=== PATIENT | male | born 1985 | race Caucasian/White ===

== ENCOUNTER → 2018-05-30 | Outpatient (CLI) | payer OTHER ==
--- NOTE | 2018-05-30 21:02 | Diagnostic Imaging Report ---
EXAM: Right Upper Quadrant Ultrasound INDICATION: ^ELEVATED LIVER ENZYMES COMPARISON: None. TECHNIQUE: Transverse and longitudinal images of the right upper abdomen were obtained. FINDINGS: Liver: Size: 16.3 cm in the right midclavicular line, normal Appearance: Mildly increased echogenicity, smooth contour Mass: No focal masses Gallbladder: Stones/Sludge: None Wall: 0.2 cm Appearance: No pericholecystic fluid or hydrops. Sonographic Cash's Sign: Negative Bile Ducts: Intrahepatic Ducts: No dilatation Extrahepatic Ducts: Common bile duct measures 0.4 cm, no dilatation Pancreas: Incompletely visualized due to overlying bowel gas, but no abnormality identified involving the visualized portions of the pancreas. Right Kidney: Size: 11.0 x 5.3 x 5.7 cm Echogenicity: Normal Parenchymal thickness: Normal Collecting system: No hydronephrosis Stones: None Cyst/Mass: None Vessels: Aorta: Obscured by bowel gas. Inferior Vena Cava: Visualized portions are normal Main Portal Vein: 0.9 cm, normal size with hepatopetal flow. Free Fluid: No ascites or pleural effusion IMPRESSION: Mildly increased echogenicity of the liver, likely mild diffuse hepatic steatosis. Signed by: Dr. Armando Hansen M.D. on 05/30/2018 8:59 PM
--- NOTE | 2018-05-30 21:12 | Diagnostic Imaging Report ---
EXAM: Renal Ultrasound Renal Dopplers INDICATION: ^ELEVATED LIVER ENZYMES/HYPERTENSION COMPARISON: None TECHNIQUE: Transverse and longitudinal images of the kidneys and bladder were obtained. Color Doppler and waveform spectral analysis were obtained of the renal vessels and abdominal aorta. FINDINGS: Right Kidney: Size: 11.9 x 4.9 x 5.4 cm Echogenicity: Normal Parenchymal thickness: Normal Collecting system: No hydronephrosis Stones: None Cyst/Mass: None Left Kidney: Size: 12.2 x 5.5 x 5.4 cm Echogenicity: Normal Parenchymal thickness: Normal Collecting system: No hydronephrosis Stones: None Cyst/Mass: None Bladder: Normal Prevoid volume 61 mL. Prostate: 34.9 mL. Dopplers: Aorta PSV = 69 cm/sec Right Kidney: Main renal artery PSV: Ostium = obscured by bowel gas Proximal = obscured by bowel gas Mid = 83 cm/sec Distal = 52 cm/sec Intrarenal (segmental or interlobar) arteries: Acceleration time: Normal Resistive index: Normal. 0.50, 0.56, 0.72 from superior to inferior. RA PSV/aorta PSV ratio (RAR) = 1.2 Left Kidney: Main renal artery PSV: Ostium = obscured by bowel gas Proximal = obscured by bowel gas Mid = 57 cm/sec Distal = 67 cm/sec Intrarenal (segmental or interlobar) arteries: Acceleration time: Normal Resistive index: Normal. 0.60, 0.67, 0.54 from superior to inferior. RA PSV/aorta PSV ratio (RAR) = 0.96 Main Renal Veins: Flow Present IMPRESSION: 1. Normal renal ultrasound exam. 2. No evidence of renal artery stenosis or renal thrombosis. 3. Exam is however limited secondary to bowel gas obscuring the ostium and proximal renal artery, which is typically the area of stenosis and increased velocity. Signed by: Dr. Armando Hansen M.D. on 05/30/2018 9:09 PM
== END ==
LOC: US 09:03
PROVIDERS: ATTEND Family Medicine
DX: R74.8 Abnormal levels of other serum enzymes (principal)
CPT/HCPCS: 76705; 76770; 93976